=== PATIENT | female | born 1965 | race Caucasian/White ===

== ENCOUNTER 2016-08-13 19:23 | Emergency (ER) | payer MEDICARE, OTHER ==
--- NOTE | ~2016-08-13 | CT2 ---
[facility] A Service of [facility] & [facility] RADIOLOGY TEXT RESULTS PATIENT: XANDER CARRASCO LOCATION: [facility] : [birth year] UNIT #: [id number] AGE: [address]: Richard Flanagan MD SEX: F ORDER DR: [id number] [facility] [address] [place], [place] [address] [id number] MR#: [id number] Acc #: [id number] NAME: XANDER CARRASCO : 1965 SEX: F STUDY DATE/TIME: 08/13/2016 21:01 UNIT: [facility] ROOM: STUDY DESCRIPTION: CT Abd and Pelv W Cont Attending Physician: Richard Flanagan M.D. Referring Physician: Vick Kendall M.D. Ordering Physician: Richard Flanagan M.D. Primary Care Physician: Vick Kendall M.D. MEDICAL IMAGING REPORT This report is preliminary unless electronic signature is present EXAM Abdomen and pelvis CT with contrast HISTORY Lower abdominal pain started this morning. History of hysterectomy. Exploratory laparotomy, cholecystectomy, kidney stones. Coronary stent and Azra fundoplication. TECHNIQUE CT abdomen and pelvis performed following oral and during the injection of 100 mL of Isovue-370. Imaging acquired in the axial plane followed by sagittal and coronal reconstructed images. This CT exam was performed with one or more of the following radiation dose reduction techniques: automatic exposure control, adjustment of mA and/or kV according to patient size, and iterative reconstruction. COMPARISON STUDIES Comparison study from 06/20/2016. FINDINGS There is dependent atelectasis, briqo-rxbcukb-mxuk-left lung base. This is essentially new from previous. CT ABDOMEN: Patient is post cholecystectomy and again, there is mild prominence of the biliary system, particularly the common bile duct but this is likely postoperative in etiology and stable when comparison to the previous. Common duct measures about 1.5 cm in diameter. Pancreas is mildly atrophic, unchanged. The spleen is unremarkable. Adrenal glands within normal limits. Partly seen are the postop changes of Azra fundoplication. Re-demonstration of fullness of the bilateral renal collecting systems but no evidence for hydroureter. The appendix is STS. [facility] A Service of [facility] & [facility] RADIOLOGY TEXT RESULTS PATIENT: XANDER CARRASCO LOCATION: [facility] : [birth year] UNIT #: [id number] AGE: [address]: Richard Flanagan MD SEX: F ORDER DR: radiographically unremarkable. The bladder calculus is seen. Probably chronic right upper pole parenchymal scarring. Re-demonstrated are small bilateral renal cysts, not appreciably changed. There are vascular calcifications in the abdominal aorta. There are postoperative changes in the lumbar spine hardware and some associated streak artifact. There is a large amount of colonic stool throughout with a large amount of gas in the rectum. Please correlate for clinical concern for constipation. There is prominence of small bowel loops in the right lower quadrant with some air-fluid levels. This is very nonspecific. There is no transition point appreciated and oral contrast media is seen within these small bowel loops. Findings could reflect a mild ileus but nothing to suggest bowel obstruction. No free intraperitoneal air. No drainable fluid collection. Remainder of the pelvis shows patient is post hysterectomy. IMPRESSION 1. Basilar atelectasis is mildly increased from prior study 06/20/2016. 2. Post cholecystectomy with stable mild biliary ductal dilatation, probably postoperative. 3. Again, there is fullness in the bilateral renal collecting systems, worse to the right side, but this is stable and I do not see evidence for an obstructing calculus on the contrast-enhanced study. 4. There is a large amount of stool in the colon to the level of the distal colon and a large amount of gas in the rectum. Please correlate for any history of constipation. 5. There are prominent small bowel loops with some air-fluid levels but there is nothing to suggest small bowel obstruction. Findings could suggest a mild ileus. 6. Postoperative changes to the lumbar spine. 7. Atherosclerotic vascular calcifications. 8. Radiographically normal appearance to the appendix. 5. Partially seen are postoperative changes of a Azra fundoplication. Dictated by... Sabina Conway M.D. THIS IS AN ELECTRONICALLY VERIFIED REPORT Sabina Conway M.D. at 08/13/2016 11:10 PM SAC/pcl TD: 08/13/2016 22:32 JOB #: [id number] MEDICAL IMAGING REPORT Page 1 of 1 COPY
[2016-08-13 19:23] LABS: BASOPHIL# 0.1 X10e3 (0-0.3); BASOPHIL% 0.7 % (0-2.5); EOSINOPHIL# 0.4 X10e3 (0-0.7); EOSINOPHIL% 3.7 % (0.0-7.0); HEMATOCRIT 43.3 % (35.0-45.0); HEMOGLOBIN 14.2 gm/dL (12.0-16.0); LYMPHOCYTE# 3.7 X10e3 (1.0-3.5); LYMPHOCYTE% 37.9 % (17.0-45.0); MEAN CELL VOLUME 92.6 FL (83-96); MEAN CORPUSCULAR HEMOGLOBIN 30.3 PG (28-34); MEAN CORPUSCULAR HGB CONC 32.7 g/dL (30-36); MEAN PLATELET VOLUME 7.4 FL (6.5-11.5); MONOCYTE# 0.8 X10e3 (0-1.0); MONOCYTE% 7.6 % (3.0-12.0); NEUTROPHIL# 4.9 X10e3 (1.5-7.1); NEUTROPHIL% 50.1 % (40-75); PLATELET COUNT 312 X10e3 (140-420); RED BLOOD COUNT 4.67 X10e (3.90-5.30); RED CELL DISTRIBUTION WIDTH 13.6 % (11.0-15.5); WHITE BLOOD COUNT 9.9 X10e3 (4.0-10.5)
[~2016-08-13 19:23] MED LIST: ACETAMINOPHEN PO; ALIGN4 MG PO; ASPIRIN PO; CARAFATE PO; CARAFATE1 G PO; CARAFATE1 GM PO; CENTRUM; CLEOCIN HCL300 M1 PO; CYMBALTA20 M1 PO; DICLOFENAC PO; DURAGESIC1 EAC1 TD; ESTRACE1 MG PO; IBUPROFEN800 MG; KLONOPIN1 M1 PO; KLONOPIN1 MG PO; LAMICTAL; LAMICTAL PO; LAMICTAL100 MG PO; LEVAQUIN PO; LIDODERM30 EA TOP; LIPITOR20 MG PO; LORTAB 101 TAB 10/5 PO; LORTAB 7.5-5001 TAB; LORTAB 7.5-5001 TAB PO; LYRICA PO; MELOXICAM15 MG PO; METHADONE HCL10 MG PO; MOBIC PO; MOBIC15 MG PO; MORPHINE SULFAT15 MG PO; NEXIUM 24HR20 MG PO; NEXIUM PO; NORCO 10-325 TA1 TAB PO; OXYCODON HCL-1 UDTAB PO; OXYCODONE HCL15 MG PO; OXYCONTIN15 MG PO; PAIN & SLEEP 21 EACH PO; PREVACID PO; PRILOSEC20 MG PO; PROTONIX PO; PROZAC PO; REMERON SOLTAB45 MG PO; REMERON15 MG PO; REMERON30 MG PO; REMERON45 MG PO; ROBAXIN PO; ROXICODONE15 MG PO; SELFEMRA20 MG PO; SEROQUEL25 MG PO; SOMA PO; ZONEGRAN100 M1 PO
[2016-08-13 19:27] LABS: DIFF IND NO
[2016-08-13 19:57] LABS: ALBUMIN SERUM 3.8 g/dL (3.5-5.0); BILIRUBIN, DIRECT 0.1 mg/dL (0.0-0.2); BILIRUBIN,INDIRECT 0.2 mg/dL (0.0-0.9); BILIRUBIN,TOTAL 0.3 mg/dL (0.2-2.0); BUN/CREATININE RATIO 12.5; CALCIUM SERUM 8.9 mg/dL (8.4-10.2); CREATININE SERUM 0.8 mg/dL (0.6-1.4); PROTEIN TOTAL SERUM 6.6 g/dL (6.0-8.3)
[2016-08-13 20:12] LABS: URINE SOURCE CLEAN CATCH
[2016-08-13 20:17] LABS: URINE APPEARANCE CLOUDY; URINE BILIRUBIN NEG (NEG); URINE BLOOD NEG (NEG); URINE COLOR YELLOW; URINE GLUCOSE NEG (NEG); URINE KETONE NEG (NEG); URINE LEUKOCYTE ESTERASE TRACE (NEG); URINE NITRATE NEG (NEG); URINE PH 5.5 (5-8); URINE PROTEIN NEG (NEG); URINE SPECIFIC GRAVITY 1.018 (1.003-1.035)
[2016-08-13 20:20] LABS: CULTURE INDICATED? YES; URINE BACTERIA AUWI NEG (NEGATIVE); URINE SQUAMOUS EPITHELIAL CELL OCC /[HPF]
[2016-08-13 20:27] LABS: URINE CRYSTALS CALCIUM OXALATE /[HPF]
[2016-08-18] MEDS ORDERED: CYMBALTA PO (11:37)
[2016-08-18] MEDS ORDERED: MIRTAZAPINE45 M1 PO (11:38)
[2016-08-18] MEDS ORDERED: ZONEGRAN100 M1 PO (11:38)
[2016-08-18] MEDS ORDERED: SOMA PO (11:39)
[2016-08-18] MEDS ORDERED: SEROQUEL25 MG PO (11:39)
[2016-08-18] MEDS ORDERED: LIPITOR PO (11:39)
[2016-08-18] MEDS ORDERED: KLONOPIN1 MG PO (11:40)
[2016-08-18] MEDS ORDERED: OXYCODONE HCL15 MG PO (11:40)
[2016-08-18] MEDS ORDERED: OXYCONTIN PO (11:40)
[2016-08-18] MEDS ORDERED: CENTRUM SILVER1 EAC3 PO (11:41)
[2016-08-18] MEDS ORDERED: FISH OIL300 MG PO (11:42)
[2016-08-18] MEDS ORDERED: VIT B-12 PO (11:43)
[2016-08-21] MEDS ORDERED: FLAGYL PO (15:01)
== END 2016-08-13 22:00 | disposition home or self-care (01) ==
LOC: CED 19:23
DX: K59.00 Constipation, unspecified (principal); K21.9 Gastro-esophageal reflux disease without esophagitis; E78.5 Hyperlipidemia, unspecified; I10 Essential (primary) hypertension; G89.29 Other chronic pain; J44.9 Chronic obstructive pulmonary disease, unspecified; Z90.710 Acquired absence of both cervix and uterus; Z88.0 Allergy status to penicillin; Z88.2 Allergy status to sulfonamides; F17.210 Nicotine dependence, cigarettes, uncomplicated
CPT/HCPCS: 36415; 74177; 80048; 80076; 81003; 83690; 85025; 87086; 96361; 96374; 96375; 99284; J1170; J2405; Q9967

== ENCOUNTER → 2016-08-21 | Day surgery (SDC) | payer MEDICARE, OTHER ==
[~2016-08-21] MED LIST changes: +CENTRUM SILVER1 EAC3 PO; +CYMBALTA PO; +FISH OIL300 MG PO; +FLAGYL PO; +LIPITOR PO; +MIRTAZAPINE45 M1 PO; +OXYCONTIN PO; +VIT B-12 PO
--- NOTE | ~2016-08-21 | OR ---
Unit #: [id number] #: [id number] Patient: XANDER CARRASCO [id number] [address] [place], [place] [address] [id number] O MR#: [id number] NAME: XANDER CARRASCO ROOM: Date of Procedure: 08/21/2016 Admission Date: 08/21/2016 Surgeon: Joseph Vazquez Jr., M.D. : 1965 Attending Physician: Joseph Vazquez Jr., M.D. Primary Care Physician: Vick Kendall M.D. OPERATIVE REPORT INDICATIONS FOR PROCEDURE The patient is a 51-year-old white female, who recently presented to the office complaining of severe abdominal pain. This has been crampy in nature at times been mid epigastric as well as lower abdominal. There is a question of whether she could have possibly some occult ulcer disease or possibly colitis. CT scan revealed several findings, but nothing specific. She is brought to the endoscopy suite at this time for upper and lower endoscopy at her request. She understands the procedure including the risks, including that of perforation and bleeding, and consents. PREOPERATIVE DIAGNOSES Possible occult ulcer disease, possible colitis. On upper endoscopy, the patient was noted to have evidence of several inlet patches in the proximal esophagus with mild hemorrhagic gastritis and some mild inflammation of the ampulla and on colonoscopy to the distal ileum, she was noted to have evidence of an ulcer within the cecum. ANESTHESIA MAC anesthesia. PROCEDURES PERFORMED Flexible fiberoptic esophagogastroduodenoscopy with antral biopsy for Helicobacter pylori and flexible colonoscopy to the distal ileum with biopsies of the cecum. DESCRIPTION OF PROCEDURE The patient was positioned in Garrett position with left side down. After being given MAC anesthesia, the Olympus XQ scope was passed through the proximal esophagus. The entire esophagus was examined. There was no evidence of any esophagitis and no evidence of any significant stenosis. The scope was advanced through the GE junction into the cardia, and on down to the fundus and antrum and retroflexed back up to the area of the cardia, there was a small hiatal hernia present. The stomach distended well without evidence of rigidity. There was some mild hemorrhagic gastritis. No evidence of any gastric ulcer disease. The scope was then advanced down the prepyloric region, where a biopsy was taken from the antrum for H pylori without significant bleeding. The scope was advanced through the pylorus and the duodenal bulb and down to the second portion of the duodenum. The entire duodenal portion examination was within normal limits except for noting some erythema in the area of the ampulla. There was no evidence of any ulceration or active bleeding. The scope was Unit #: [id number] #: [id number] Patient: XANDER CARRASCO then slowly removed. There were multiple inlet patches in the proximal esophagus noted with removal of the scope. Once the scope was removed, the patient repositioned for colonoscopy. Digital rectal examination was performed, which revealed no palpable mass or tenderness. No blood or stool in the rectal ampulla. The Olympus colonoscope was advanced through the anal canal up the rectum and retroflexed down to the area of the anorectal region. There was no evidence of any significant internal hemorrhoids. No evidence of any proctitis. The scope was then straightened and advanced up in the rectosigmoid, in the sigmoid and descending colon areas, around the splenic flexure and the transverse colon, around hepatic flexure and ascending colon, down in the area of the cecum. The light from the tip of the scope could be seen transilluminating through right lower quadrant abdominal wall area. There was 2 cm ulceration in the cecum. Multiple biopsies were taken from this without significant bleeding. The scope was advanced up the distal ileum approximately 10 to 12 inches. There was no evidence of any ileitis or inflammatory bowel disease. The scope was slowly removed. There were no tumors, polyps, cancer, or AVMs. No evidence of colitis except for the ulceration of the cecum and no evidence of any diverticulosis or diverticulitis. The caliber of the colon appeared normal throughout without evidence of narrowing or obstruction. The scope was removed. The patient tolerated the procedure well and discharged in satisfactory condition. Dictated by... Joseph Vazquez Jr., M.D. JMB/domingo TD: 08/21/2016 22:42 JOB #: [id number] OPERATIVE REPORT Page 1 of 1 X Joseph Vazquez MD X PROCEDURE OPERATIVE NOTE
== END | disposition home or self-care (01) ==
LOC: COPS 11:51
DX: K52.9 Noninfective gastroenteritis and colitis, unspecified (principal); K63.3 Ulcer of intestine; K44.9 Diaphragmatic hernia without obstruction or gangrene; M19.90 Unspecified osteoarthritis, unspecified site; E78.00 Pure hypercholesterolemia, unspecified; E78.5 Hyperlipidemia, unspecified; R25.1 Tremor, unspecified; F17.210 Nicotine dependence, cigarettes, uncomplicated; Z87.442 Personal history of urinary calculi; Z87.19 Personal history of other diseases of the digestive system; Z98.51 Tubal ligation status; Z90.710 Acquired absence of both cervix and uterus; Z90.89 Acquired absence of other organs; Z88.0 Allergy status to penicillin; Z88.2 Allergy status to sulfonamides; Z87.01 Personal history of pneumonia (recurrent); Z79.899 Other long term (current) drug therapy; Z79.891 Long term (current) use of opiate analgesic
CPT/HCPCS: 87077; 88305; J2250